=== PATIENT | female | born 1950 | race Caucasian/White ===

== ENCOUNTER 2017-11-29 11:16 | Emergency (ER) | payer OTHER ==
[2017-11-29] MEDS ORDERED: OXYMETAZOLINE 30 ML NASAL SPRAY EACHNARE ONE (11:18)
--- NOTE | 2017-11-29 11:27 | EDPHY ---
H & P Time Seen by Provider: 11/29/17 11:21 HPI/ROS: CHIEF COMPLAINT: Nose bleed HISTORY OF PRESENT ILLNESS: Patient is a 66-year-old female who is visiting [place] [facility] emergency department with nosebleed. Patient is on Xarelto for atrial fibrillation and previous CVA. Patient states that she did not sustain any trauma and had spontaneous nose bleed. She is not lightheaded or dizzy. No chest pain or shortness of breath. The patient recently. Her sotalol and was placed on a laboratory monitor. Upon review of the laboratory monitor the patient is having intermittent episodes of atrial fibrillation and she is to follow-up when she returns home with her carpenter mate. The patient denies any other sites of bleeding or bruising. REVIEW OF SYSTEMS: My complete review of systems is negative except as mentioned in the HPI. Past Medical/Surgical History: Includes atrial fibrillation, CVA, high cholesterol Past surgical history: Includes orthopedic repair Social history: The patient is visiting from [place]. She does not smoke. Smoking Status: Never smoked Physical Exam: Vitals noted GENERAL: Well-appearing, in no acute distress, alert. HEENT: Eyes normal to inspection. The patient has a nasal camp in place. There is no active bleeding around it. There is no bleeding in her pharynx. NECK: No thyromegaly, no lymphadenopathy, supple. RESPIRATORY: Clear to auscultation bilaterally, no rales, rhonchi or wheezing. CVS: Regular rate and rhythm, no rubs, murmurs, or gallops. ABDOMEN: Soft, nontender, nondistended, no organomegaly. BACK: Normal to inspection, no CVA tenderness. No bruising. SKIN: Normal color, no rash, warm, dry. No pallor. No bruising. EXTREMITIES: No pedal edema, no calf tenderness, no Homans sign or cords, no joint swelling. No bruising. NEURO/PSYCH: Alert and oriented x3, normal mood and affect, normal motor sensory exam. No obvious cranial nerve deficit. Constitutional: Initial Vital Signs Temperature (C) 36.1 C 11/29/17 11:18 Heart Rate 75 11/29/17 11:18 Respiratory Rate 18 11/29/17 11:18 Blood Pressure 147/94 H 11/29/17 11:18 O2 Sat (%) 96 04/15/18 11:18 O2 Delivery Mode Room Air Allergies/Adverse Reactions: No Known Allergies Allergy (Unverified 11/29/17 11:21) Home Medications: Medication Instructions Recorded CeleBREX 11/29/17 Celexa 11/29/17 Wellbutrin Sr 11/29/17 Xarelto 11/29/17 Medical Decision Making Procedures: Nasal Caudery. I discussed the pros and cons of the procedure with the patient. She consented. Using silver nitrate I was able to cauterize her left nare. The bleeding ceased. ED Course/Re-evaluation: In the emergency department I met EMS on arrival. I took report from the melter clerk. Patient had nasal clamp in place. I sprayed Afrin spray and replaced the clamp. 1155: On recheck the patient had slight bleeding at the left anterior knee air. Afrin was reapplied. Clamp was applied. I discussed the plan with the patient. Differential Diagnosis: My differential includes but is not limited to anterior epistaxis, posterior epistaxis, mass, malignancy, abrasion, coagulopathy - Data Points Medications Given: Discontinued Medications Oxymetazoline HCl (Afrin Nasal [place]) 2 sprays EACHNARE EDNOW ONE Stop: 11/29/17 11:19 Last Admin: 11/29/17 11:22 Dose: 1 spray Departure - Departure Disposition: Home, Routine, Self-Care Clinical Impression: Anterior epistaxis Condition: Good Instructions: Nosebleed (ED) Additional Instructions: If you're nose starts to bleed spray 2 squirts of Afrin and then apply the nasal clamp for at least 20-30 minutes. Return if the bleeding does not sees. Referrals: Live Martínez MD [Medical Doctor] - 5-7 days, call for appt.
[2017-11-29 11:30] VITALS: BP 147/94
[2017-11-29] MEDS ORDERED: SILVER NITRATE APPLICATOR 1 APPL TP ONE (12:21)
== END 2017-11-29 13:09 | disposition home or self-care (01) ==
LOC: EDUNIT#
PROC: 095K8ZZ Destruction of Nasal Mucosa and Soft Tissue, Via Natural or Artificial Opening Endoscopic (ICD-10-PCS; principal; 2017-11-29)
DX: R04.0 Epistaxis (principal); Z86.73 Personal history of transient ischemic attack (TIA), and cerebral infarction without residual deficits